=== PATIENT | male | born 1965 | race Caucasian/White ===

== ENCOUNTER 2018-11-09 22:31 | Emergency (ER) | payer OTHER ==
[~2018-11-09] VITALS: Ht 185.4 cm; Wt 108.9 kg
[~2018-11-09 22:31] MED LIST: B/P MED; CEPHALEXIN500 MG PO; NORCO 5-325 TA1 EACH PO; PRILOSEC40 MG PO
--- OUTSIDE RECORDS SUMMARY | 2018-11-09 22:34 | XMS ---
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 E.D. VISIT COUNT (12 MO.) 1 [facility] [place] TOTAL 1 NOTE: Visits indicate total known visits. ED/UCC VISIT TRACKING (12 MO.) 11/09/2018 22:31 [facility] [place] TYPE: Emergency COMPLAINT: - POST OP PAIN/R HIP INPATIENT VISIT TRACKING (12 MO.) No inpatient visits to display in this time frame [email or web address]
[2018-11-09] MEDS ORDERED: LOSARTAN POTASS25 MG PO (23:06)
[2018-11-09] MEDS ORDERED: ULTRAM50 MG PO (23:07)
[2018-11-09] MEDS ORDERED: PERCOCET 5-3251 EACH PO (23:07)
[2018-11-09] MEDS ORDERED: MOBIC7.5 MG PO (23:08)
== END 2018-11-10 01:12 | disposition home or self-care (01) ==
LOC: ED 22:31
DX: Z47.1 Aftercare following joint replacement surgery (principal); K59.03 Drug induced constipation; T40.2X5A Adverse effect of other opioids, initial encounter; R74.8 Abnormal levels of other serum enzymes; I10 Essential (primary) hypertension; Z90.49 Acquired absence of other specified parts of digestive tract; Z88.1 Allergy status to other antibiotic agents; Z79.899 Other long term (current) drug therapy
CPT/HCPCS: 80053; 85025; 85651; 99283

== ENCOUNTER 2020-02-06 06:25 | Day surgery (SDC) | payer OTHER ==
[~2020-02-06] VITALS: Ht 185.4 cm; Wt 109.3 kg
[~2020-02-06 06:25] MED LIST changes: +CARDIZEM LA300 MG PO; +FISH OIL 1,001000 MG PO; +LOSARTAN POTASS25 MG PO; +MEGA MULTI FOR1 EAC1 PO; +MOBIC7.5 MG PO; +PERCOCET 5-3251 EACH PO; +ULTRAM50 MG PO; +ZYLOPRIM300 MG PO
--- NOTE | 2020-02-10 08:15 | OR ---
[facility] [address] [place], [place] [address] Signed DATE OF OPERATION: 02/06/2020 SURGEON: Rodrigo Peraza MD PREOPERATIVE DIAGNOSES: 1. Rectal bleeding. 2. Change in bowel habits with diarrhea, change into constipation. 3. Unremarkable colonoscopy in 2009 at age 44. POSTOPERATIVE DIAGNOSES: 1. A 4 mm rectal polyp at 18 cm. 2. A 4 mm rectal polyps x2 at 8 cm. 3. Minimal sigmoid diverticulosis. 4. Minimal irritated internal hemorrhoids. 5. Internal anal skin tags x2. PROCEDURE: Colonoscopy with hot biopsy. ESTIMATED BLOOD LOSS: None. INDICATIONS: Ming is a 54-year-old gentleman, who came to see me for a colonoscopy. He has been having rectal bleeding in the last 3-4 weeks. He has had a change in bowel habits. He said normally he has had diarrhea his whole life. He is now having some constipation. In 2009 at the age of 44, he went through a colonoscopy, negative colonoscopy, negative blood work, and negative stool studies. His primary care provider had sent him over for a followup colonoscopy. He has no family history of colon cancer or polyps or inflammatory bowel disease. In the office, I gave Ming a booklet on colonoscopy. He understands the nature of the test along with the risks including, but not limited to gas bloating, crampy abdominal pain, bleeding, perforation requiring surgery, and missed diagnosis. He also understands the need for IV conscious sedation. He expressed understanding and wished to proceed. PROCEDURE NOTE: Ming was taken into our endoscopy suite and placed in the left lateral decubitus position. He was given a total of 10 mg of Versed and 150 mcg of fentanyl to cover the case. A digital rectal exam was performed and this was unremarkable. Specifically, no external hemorrhoids. The adult colonoscope was introduced and advanced under direct Electronically Signed By: RODRIGO PERAZA MD 02/06/20 9094 Electronically Signed By: RODRIGO PERAZA MD 02/11/20 0634 PATIENT NAME: MING OBANDO OPERATIVE REPORT DATE OF : 65 REPORT #: [id number] PHYSICIAN: RODRIGO PERAZA MD PCP: VINH WHITTEN PA-C REPORT IS CONFIDENTIAL AND NOT TO BE RELEASED WITHOUT AUTHORIZATION [facility] [address] [place], [place] [address] Signed visualization of camera into the cecum itself. It took some extra sedation in order to advance the scope. His prep was quite good. We could easily see the appendiceal orifice and the ileocecal valve. The scope was slowly withdrawn. We saw no polyps throughout the entire colon. He did have a few diverticula in the sigmoid colon. They were moderate in size, few in number, and scattered about. The rectum itself had the above-mentioned polyps, they were easily removed with the help of hot biopsy forceps. Upon retroflexion of scope, he does have minimal internal hemorrhoids on both sides of the anus. They were little irritated and probably represent the source of his bleeding associated with the constipation. Also, there were two small internal skin tags as well. After this, the gas was suctioned out. The gastroscope removed. Ming tolerated the procedure quite well. RECOMMENDATIONS: I will see Ming back in my office in 7 to 14 days to review his results. Rodrigo Peraza MD [facility]/MODL /[id number] cc: IMANI Garcia MD Copies: VINH WHITTEN PA-C, ANDREW L MD ~ Electronically Signed By: RODRIGO PERAZA MD 02/06/20 1054 Electronically Signed By: RODRIGO PERAZA MD 02/11/20 0634 PATIENT NAME: MING OBANDO OPERATIVE REPORT DATE OF : 65 REPORT #: [id number] PHYSICIAN: RODRGIO PERAZA MD PCP: VINH WHITTEN PA-C REPORT IS CONFIDENTIAL AND NOT TO BE RELEASED WITHOUT AUTHORIZATION
--- NOTE | 2020-02-10 15:35 | PATH ---
[facility] [address] [place], [place] [address] Signed SPECIMEN(S): A COLON POLYP AT 8 CM SPECIMEN(S): B COLON POLYP AT 18 CM SPECIMEN SOURCE: A. COLON POLYP AT 8 CM B. COLON POLYP AT 18 CM CLINICAL HISTORY: Pre: Bowel habit changes, rectal bleeding. Post: Diverticulosis, rectal polyps internal hemorrhoids. Colonoscopy. MICROSCOPIC DESCRIPTION: Histologic sections of all submitted blocks are examined by light microscopy. These findings, together with the gross examination, support the pathologic diagnosis. FINAL PATHOLOGIC DIAGNOSIS: A. Colon, polyp at 8 cm, polypectomy: - Well-differentiated neuroendocrine tumor (carcinoid tumor). - Tumor invades the lamina propria and muscularis mucosa. - Hyperplastic polyp. - See Comment. B. Colon, polyp at 18 cm, polypectomy: - Hyperplastic polyp. - Negative for dysplasia or malignancy. COMMENT: Regarding specimen A: Sections demonstrate fragments of colonic mucosa with nests and cords of monotonous tumor cells with characteristic neuroendocrine type (salt and pepper) chromatin. Mitoses are not identified. The tumor is approximately 1.7 mm in greatest dimension in the biopsied tissue. Immunohistochemical stains (with appropriately staining controls) are performed. The tumor cells are positive for synaptophysin, CD56, and chromogranin (rare, patchy positive). Ki-67 labeling index is 2%. The combined morphologic and immunophenotypic profile supports the diagnosis of well-differentiated neuroendocrine tumor (carcinoid), G1. As part of [facility] Quality Improvement Program, part A of this case was reviewed by another member of our pathology staff. The results were discussed with Dr. Levin on 02/10/2020. PATIENT NAME: KESHIA OBANDO PATHOLOGY DATE OF : 65 REPORT #: [id number] PHYSICIAN: KELBY RAMIRES PCP: VINH WHITTEN PA-C REPORT IS CONFIDENTIAL AND NOT TO BE RELEASED WITHOUT AUTHORIZATION [facility] [address] [place], [place] [address] Signed NAL:cml:C1NR GROSS DESCRIPTION: Two specimens are received in two containers, labeled "TM." A. The specimen, labeled "TM, 1," and designated on the requisition "colon polyp at 8 cm," is received in formalin and consists of four lewis soft tissue polypoid fragments that measure 0.3 cm in greatest dimension. The specimen is entirely submitted in cassette (A1). B. The specimen, labeled "TM, 2," and designated on the requisition "colon polyp at 18 cm," is received in formalin and consists of one lewis-pink soft tissue fragment that measures 0.3 cm in greatest dimension. The specimen is entirely submitted in cassette (B1). AT (under the direct supervision of a pathologist) The Gross Description was prepared using a voice recognition system. The report was reviewed for accuracy; however, sound-alike word errors, addition and/or deletions may occur. If there is any question about this report, please contact Client Services. ADDITIONAL NOTES: Immunohistochemical and/or in situ hybridization studies were performed on this case with the appropriate positive controls that react as expected. This test was developed and its performance characteristics determined by [facility]. It has not been cleared or approved by the U.S. Food and Drug Administration. The FDA has determined that such clearance or approval is not necessary. This test is used for clinical purposes. It should not be regarded as investigational or for research. [facility] is certified under the Clinical Laboratory Improvement Amendments of 1988 (CLIA) as qualified to perform high complexity clinical laboratory testing. PERFORMING LABORATORY: The technical component was performed by [facility], [address] [place] [address] (Rig Site Engineer: Kerry Lundberg MD; CLIA# [id number]). Professional interpretation was performed by [facility], [address] [place], [place] [address] (CLIA# [id number]). Diagnostician: Bri Meier MD Pathologist Electronically Signed 02/10/2020 PATIENT NAME: KESHIA OBANDO PATHOLOGY DATE OF : 65 REPORT #: [id number] PHYSICIAN: EKLBY PATHOLOGY PCP: VINH WHITTEN PA-C REPORT IS CONFIDENTIAL AND NOT TO BE RELEASED WITHOUT AUTHORIZATION [facility] [address] [facility] [place], [place] [address] Signed Copies: ~ PATIENT NAME: KESHIA OBANDO PATHOLOGY DATE OF : 65 REPORT #: [id number] PHYSICIAN: KELBY RAMIRES PCP: VINH WHITTEN PA-C REPORT IS CONFIDENTIAL AND NOT TO BE RELEASED WITHOUT AUTHORIZATION
== END 2020-02-06 09:15 | disposition home or self-care (01) ==
LOC: OPS 06:25 → DS 06:25 → OPS 06:45
PROVIDERS: Colon & Rectal Surgery
PROC: 0DBP8ZZ Excision of Rectum, Via Natural or Artificial Opening Endoscopic (ICD-10-PCS; principal; 2020-02-06 06:45)
DX: K62.1 Rectal polyp (principal); K64.8 Other hemorrhoids; K57.30 Diverticulosis of large intestine without perforation or abscess without bleeding
CPT/HCPCS: 99153; G0500; J0690; J2250; J3010; J7121

== ENCOUNTER 2020-03-25 10:00 | Day surgery (SDC) | payer OTHER ==
[~2020-03-25] VITALS: Ht 185.4 cm; Wt 109.8 kg
--- NOTE | 2020-03-25 12:56 | NUR ---
03/25/20 Fidel6 Lorena Echeverria 1250-PATIENT ARRIVED TO PACU ON 2L NC AWAKE DROWSY LAYING LEFT LATERAL PATIENT ENCOURAGED TO PASS GAS. IVF INFUSING. .
--- NOTE | 2020-03-26 10:00 | OR ---
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 POSTOPERATIVE DIAGNOSES: 1. 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 2. A 2 mm polypoid lesions at 8 cm (new). PROCEDURE: Limited colonoscopy with hot biopsy at 8 cm. ESTIMATED BLOOD LOSS: None. INDICATIONS: Ming is a 54-year-old gentleman, who just came to us on February 06, 2020 for a followup colonoscopy. He had a change in bowel habits with diarrhea, it had changed into constipation. He then had some rectal bleeding. He had an unremarkable colonoscopy back in 2009 at age 44. On this occasion, we took out a small hyperplastic polyp up at 18 cm, but then he had two tiny carcinoid tumors at 8 cm by several centimeters. They were very small, maybe 1.5 mm in diameter. Both areas have been cauterized with the hot biopsy forceps. He also has a minimal sigmoid diverticulosis and minimal internal hemorrhoid columns that had been a little irritated. He also has small internal anal skin tags x2. He had conferred with the Colorectal surgeon in [place], who agreed that we should go back and just rebiopsy those areas currently, maybe again in six months or so. Again, these were quite small and I had gone through this in great detail with Ming in the office. Consequently, Ming presents today for his repeat limited colonoscopy. He understands the colonoscopy quite well. He understands there is risk including, but not limited to gas bloating, crampy abdominal pain, bleeding, perforation requiring surgery, and missed diagnosis. He had expressed understanding and wished to proceed. DESCRIPTION OF PROCEDURE: Ming was taken into our endoscopy suite and placed in the left lateral decubitus position. He was given preoperative Ancef due to his right hip replacement. A total of 6 mg of Versed and 100 mcg of fentanyl was given to cover this case. A digital rectal exam was performed, and again this was unremarkable. The adult colonoscope was Electronically Signed By: RODRIGO PERAZA MD 03/26/20 0643 Electronically Signed By: RODRIGO PERAZA MD 03/26/20 1022 PATIENT NAME: MING OBANDO OPERATIVE REPORT DATE OF : 65 REPORT #: [id number] PHYSICIAN: RODRIGO PERAZA MD PCP: VINH WHITTEN PA-C REPORT IS CONFIDENTIAL AND NOT TO BE RELEASED WITHOUT AUTHORIZATION [facility] [address] [place], [place] [address] Signed introduced and his prep was quite excellent. It took just a minute to find his 2 previous polypectomy sites. They were several centimeters apart at about 8 cm up to rectum. They were on the first haustral fold. Just to the side of one polypectomy site was two tiny lesions, maybe 2 mm at most in diameter. Both were removed and destroyed completely with the hot biopsy forceps and put into a separate container. We then rebiopsied both of the previous polypectomy sites and placed them in separate containers. We started in the center and it went circumferentially and used a hot biopsy forceps and cauterized that tissue quite fairly aggressively. At least a centimeter or more between 12 and 15 mm of tissue was cauterized circumferentially. Pictures were taken throughout for photodocumentation. We passed the scope up to the top of the rectum that look around and slowly came back down once again. We did not retroflex the scope on this occasion. After this, the gas was suctioned out and the colonoscope removed. Ming was actually awake and talking to us there towards the end of the case. He had tolerated the procedure quite well. RECOMMENDATIONS: I will see Ming back in my office in 7 to 14 days to review his results. He might consider repeating his colonoscopy in 6-12 months given these tiny rectal carcinoid tumors. Rodrigo Peraza MD [facility]/MODL /[id number] cc: IMANI Garcia MD David Obrien, MD Copies: VINH WHITTEN PA-C, ANDREW L MD Electronically Signed By: RODRIGO PERAZA MD 03/26/20 0643 Electronically Signed By: RODRIGO PERAZA MD 03/26/20 1022 PATIENT NAME: MING OBANDO OPERATIVE REPORT DATE OF : 65 REPORT #: [id number] PHYSICIAN: RODRIGO PERAZA MD PCP: VINH WHITTEN PA-C REPORT IS CONFIDENTIAL AND NOT TO BE RELEASED WITHOUT AUTHORIZATION [address] [address] Signed CE MORRIS MD ~ Electronically Signed By: RODRIGO PERAZA MD 03/26/20 0643 Electronically Signed By: RODRIGO PERAZA MD 03/26/20 1022 PATIENT NAME: DULCE UNIQUEMINGBonita COLINDRES OPERATIVE REPORT DATE OF : 65 REPORT #: [id number] PHYSICIAN: RODRIGO PERAZA MD PCP: VINH WHITTEN PA-C REPORT IS CONFIDENTIAL AND NOT TO BE RELEASED WITHOUT AUTHORIZATION
--- NOTE | 2020-03-26 12:49 | PATH ---
[facility] [address] [place], [place] [address] Signed SPECIMEN(S): A COLON POLYP AT 8 CM SPECIMEN(S): B COLON AT 8 CM SPECIMEN(S): C COLON AT 8 CM SPECIMEN SOURCE: A. COLON POLYP AT 8 CM B. COLON AT 8 CM C. COLON AT 8 CM CLINICAL HISTORY: History of carcinoid tumor, history of colon polyps. MICROSCOPIC DESCRIPTION: Histologic sections of all submitted blocks are examined by light microscopy. These findings, together with the gross examination, support the pathologic diagnosis. FINAL PATHOLOGIC DIAGNOSIS: A. Colon, polyp at 8 cm, polypectomy: - Hyperplastic polyp. - Negative for dysplasia or malignancy. B. Colon, 8 cm, re-biopsy first site: - Colonic mucosa with no histopathologic abnormality. - Negative for dysplasia or malignancy. C. Colon, 8 cm, re-biopsy second site: - Colonic mucosa with no histopathologic abnormality. - Negative for dysplasia or malignancy. COMMENT: Regarding specimens B and C: The clinical history of carcinoid tumor at 8 cm is noted. No residual carcinoid tumor is present within the biopsied material. Continued clinical surveillance is recommended. NAL:em:C2NR GROSS DESCRIPTION: Three specimens are received in three containers, labeled "TM." A. The specimen, labeled "TM, 1," and designated on the requisition "colon polyp at 8 cm," is received in formalin and consists of two lewis soft tissue fragments that measure 0.3 cm in greatest dimension. The specimen is entirely submitted in cassette (A1). B. The specimen, labeled "TM, 2 re-biopsy 1st site," and designated on the PATIENT NAME: KESHIA OBANDO PATHOLOGY DATE OF : 65 REPORT #: [id number] PHYSICIAN: KELBY RAMIRES PCP: VINH WHITTEN PA-C REPORT IS CONFIDENTIAL AND NOT TO BE RELEASED WITHOUT AUTHORIZATION [facility] [address] [place] [address] Signed requisition "colon biopsy 8 cm," is received in formalin and consists of five lewis soft tissue fragments that measure 0.3 cm in greatest dimension. The specimen is entirely submitted in cassette (B1). C. The specimen, labeled "TM, 3 re-biopsy 2nd site," and designated on the requisition "colon biopsy 8 cm," is received in formalin and consists of multiple lewis soft tissue fragments that measure 0.3 cm in greatest dimension. The specimen is entirely submitted in cassette (C1). AT (under the direct supervision of a pathologist) The Gross Description was prepared using a voice recognition system. The report was reviewed for accuracy; however, sound-alike word errors, addition and/or deletions may occur. If there is any question about this report, please contact Client Services. PERFORMING LABORATORY: The technical component was performed by [facility], [address] [place] [address] (Animal Damage Control Agent: Kerry Lundberg MD; CLIA# [id number]). [facility] by [facility], [address] [address] (CLIA# [id number]). Diagnostician: Bri Meier MD Pathologist Electronically Signed 03/26/2020 Copies: ~ PATIENT NAME: KESHIA OBANDO PATHOLOGY DATE OF : 65 REPORT #: [id number] PHYSICIAN: KELBY RAMIRES PCP: VINH WHITTEN PA-C REPORT IS CONFIDENTIAL AND NOT TO BE RELEASED WITHOUT AUTHORIZATION
== END 2020-03-25 13:40 | disposition home or self-care (01) ==
LOC: OPS 10:00 → DS 10:00 → OPS 12:15 → DS 12:15 → OPS 13:40
PROVIDERS: Colon & Rectal Surgery
PROC: 0DBE8ZZ Excision of Large Intestine, Via Natural or Artificial Opening Endoscopic (ICD-10-PCS; principal; 2020-03-25 12:15)
DX: K63.5 Polyp of colon (principal); I10 Essential (primary) hypertension; M10.9 Gout, unspecified; M81.0 Age-related osteoporosis without current pathological fracture; Z79.899 Other long term (current) drug therapy
CPT/HCPCS: 99153; G0500; J0690; J2250; J3010

== ENCOUNTER 2021-08-17 08:04 | Day surgery (SDC) | payer OTHER ==
[~2021-08-17] VITALS: Ht 185.4 cm; Wt 113.0 kg
--- NOTE | 2021-08-17 10:18 | NUR ---
08/17/21 1018 Caryn Ny 1001 PT ARRIVED IN PACU SLEEPY. ABD SOFT AND PASSING FLATUS. 1015 RESTING. REU.
--- NOTE | 2021-08-18 07:24 | OR ---
[facility] [address] [place], [place] [address] Signed DATE OF OPERATION: 08/17/2021 SURGEON: Rodrigo Peraza MD PREOPERATIVE DIAGNOSES: 1. Chronic diarrhea. 2. Internal hemorrhoids with associated skin tags. 3. Rectal carcinoid tumors x2 (1.7 mm) at 8 cm. 4. Hyperplastic polyps. 5. Diverticulosis. POSTOPERATIVE DIAGNOSES: 1. Moderate internal and external hemorrhoid x1. 2. Polypectomy scars x2 at 8 cm. 3. Minimal to moderate sigmoid diverticulosis. PROCEDURE: Colonoscopy with cold biopsies x3 at 8 cm. ESTIMATED BLOOD LOSS: None. INDICATIONS: Ming is a 55-year-old gentleman, who returns for a followup colonoscopy. He had a negative colonoscopy in 2009 at the age of 44 with respect to intermittent rectal bleeding. He is known to have chronic diarrhea as well. I helped him with a colonoscopy in January of 2020. He had two tiny carcinoid tumors in his rectum measuring 1.7 mm in diameter. They were about 2 cm apart up in the rectum about 8 cm. He also is known to have hyperplastic polyps and diverticulosis. Of course, he has internal hemorrhoids with associated skin tags. We brought him back in March of 2020 and repeated the colonoscopy. We re-biopsied the two areas in his rectum. That was unremarkable. We decided to bring him back in one year and repeat his colonoscopy with biopsies in the rectum. In the meantime, he is doing fine. There is no family history of colon cancer or polyps. In the office, I gave Ming a pamphlet on colonoscopy. He recalls the test well. There is risk including, but not limited to gas bloating, crampy abdominal pain, bleeding, perforation requiring surgery, and missed diagnosis. He also understands the need for the IV conscious sedation. He had expressed understanding and wished to proceed. PROCEDURE NOTE: Electronically Signed By: RODRIGO PERAZA MD 08/18/21 0724 PATIENT NAME: IMNG QUIORZ OPERATIVE REPORT DATE OF : 65 REPORT #: [id number] PHYSICIAN: RODRIGO PERAZA MD PCP: VINH WHITTEN PA-C REPORT IS CONFIDENTIAL AND NOT TO BE RELEASED WITHOUT AUTHORIZATION [facility] [address] [place], [place] [address] Signed Ming was taken into our endoscopy suite and placed in the left lateral decubitus position. He was given a total of 10 mg of Versed and 150 mcg of fentanyl. A digital rectal exam was performed. He did have some external hemorrhoid on the right lateral position. He had good sphincter tone. No palpable masses. Prostate not particularly concerning. The adult colonoscope was introduced and we could see the two polypectomy scars about 2 cm apart about 8 cm up from the anal verge. They were quite well healed. No evidence of any recurrent carcinoid tumor or polyp. We went ahead and passed the scope up to the sigmoid colon. It took just a minute with some extra sedation and abdominal compression and removed the scope through his sigmoid colon. It then traveled quite nicely up into the cecum itself. Even then it took a little extra Versed and fentanyl to keep him sedated while we advanced the scope. His prep was quite good. We could easily see the appendiceal orifice and the ileocecal valve. The scope was then slowly withdrawn. We took pictures throughout for photodocumentation. We did see a few diverticula in the left and sigmoid colon. They were moderate in size, few in number, and scattered about. No evidence of any colon or rectal polyps on this occasion. Once again, we could see the two previous polypectomy scars. We used a cold biopsy forceps to take three biopsies of these two areas. After this, the scope has then retroflexed. He does have an internal hemorrhoid component as well. The gas was then suctioned out and the colonoscope removed. Ming tolerated the procedure quite well. RECOMMENDATIONS: I will see Ming back in my office in 7 to 14 days to review his results. I suspect we can lengthen the interval for his followup colonoscopy so long as the biopsies are unremarkable. Rodrigo Peraza MD [facility] /[id number] cc: IMANI Garcia MD Copies: VINH WHITTEN PA-C Electronically Signed By: RODRIGO PERAZA MD 08/18/21 0724 PATIENT NAME: MING QUIROZ OPERATIVE REPORT DATE OF : 65 REPORT #: [id number] PHYSICIAN: RODRIGO PERAZA MD PCP: VINH WHITTEN PA-C REPORT IS CONFIDENTIAL AND NOT TO BE RELEASED WITHOUT AUTHORIZATION [address] [address] Signed RODRIGO PERAZA MD ~ Electronically Signed By: RODRIGO PERAZA MD 08/18/21 0724 PATIENT NAME: MING QUIROZ OPERATIVE REPORT DATE OF : 65 REPORT #: [id number] PHYSICIAN: RODRIGO PERAZA MD PCP: VINH WHITTEN PA-C REPORT IS CONFIDENTIAL AND NOT TO BE RELEASED WITHOUT AUTHORIZATION
--- NOTE | 2021-08-18 14:45 | PATH ---
[facility] [address] [place], [place] [address] Signed SPECIMEN(S): A RECTAL BIOPSY SPECIMEN SOURCE: A. RECTAL BIOPSY CLINICAL HISTORY: Colonoscopy. Diverticulosis, anal skin tag, history of polyps, internal hemorrhoids. Postop: Internal and external hemorrhoids, diverticulosis. History of rectal carcinoid. FINAL PATHOLOGIC DIAGNOSIS: Rectum, biopsies: - Benign colonic mucosa with some focal reactive changes. - Negative for residual malignancy. - Negative for acute inflammation, microscopic colitis, and dysplasia. DDF:cml:C2NR MICROSCOPIC EXAMINATION: Histologic sections of all submitted blocks are examined by light microscopy. These findings, together with the gross examination, support the pathologic diagnosis. GROSS DESCRIPTION: The specimen, labeled "TM, rectum biopsy," is received in formalin and consists of three lewis soft tissue fragments that measure 0.2-0.3 cm in greatest dimension. The specimen is entirely submitted in cassette (A1). JS (under the direct supervision of a pathologist) The Gross Description was prepared using a voice recognition system. The report was reviewed for accuracy; however, sound-alike word errors, addition and/or deletions may occur. If there is any question about this report, please contact Client Services. PERFORMING LABORATORY: The technical component was performed by [facility], [address] [place] [address] (Railroad Accountant: Kerry Lundberg MD; CLIA# [id number]). [facility], [address] [address] (CLIA# [id number]). Diagnostician: Kurt Quiroz DO PATIENT NAME: KESHIA QUIROZ PATHOLOGY DATE OF : 65 REPORT #: [id number] PHYSICIAN: [facility] PCP: VINH WHITTEN PA-C REPORT IS CONFIDENTIAL AND NOT TO BE RELEASED WITHOUT AUTHORIZATION [facility] [address] [place] [address] Signed Pathologist Electronically Signed 08/18/2021 Copies: ~ PATIENT NAME: KESHIA QUIROZ PATHOLOGY DATE OF : 65 REPORT #: [id number] PHYSICIAN: [facility] PATHOLOGY PCP: VINH WHITTEN PA-C REPORT IS CONFIDENTIAL AND NOT TO BE RELEASED WITHOUT AUTHORIZATION
== END 2021-08-17 10:55 | disposition home or self-care (01) ==
LOC: OPS 08:04 → DS 08:07 → OPS 08:25 → DS 09:45 → OPS 10:55
PROVIDERS: ATTEND Colon & Rectal Surgery
PROC: 0DBP8ZX Excision of Rectum, Via Natural or Artificial Opening Endoscopic, Diagnostic (ICD-10-PCS; principal; 2021-08-17 08:25)
DX: Z09 Encounter for follow-up examination after completed treatment for conditions other than malignant neoplasm (principal); K57.30 Diverticulosis of large intestine without perforation or abscess without bleeding; K64.8 Other hemorrhoids; K64.0 First degree hemorrhoids; K64.4 Residual hemorrhoidal skin tags; Z96.641 Presence of right artificial hip joint; Z86.010 Personal history of colon polyps
CPT/HCPCS: 99153; G0500; J0690; J2250; J3010; J7121